=== PATIENT | female | born 1990 | race Caucasian/White ===

== ENCOUNTER 2021-02-20 15:17 | Emergency (ER) | payer OTHER ==
[2021-02-20] MEDS ORDERED: Boostrix 0.5 ML (Tdap) VIAL ONE (15:34)
[2021-02-20 16:15] LABS: Hep C IgG Ab Non-Reactive (NonReactive); Hep C Index 0.06 S/CO (0-0.79)
[2021-02-20 16:16] LABS: HIV (1/2) Antibody/Antigen Non-Reactive (NonReactive); HIV 1/2 INDEX 0.12 S/CO (<1.00)
[2021-02-20 16:22] LABS: HBSAB Concentration 49.19 mIU/mL; Hep B Surf AB Reactive (NonReactive)
== END 2021-02-20 16:10 | disposition home or self-care (01) ==
LOC: ERS 15:17
DX: S61.432A Puncture wound without foreign body of left hand, initial encounter (principal); Z77.21 Contact with and (suspected) exposure to potentially hazardous body fluids; W26.8XXA Contact with other sharp object(s), not elsewhere classified, initial encounter
CPT/HCPCS: 86706; 86803; 87389; 90471; 90715